=== PATIENT | female | born 1985 | race Caucasian/White ===

== ENCOUNTER 2017-01-12 10:46 | Emergency (ER) | payer MEDICAID ==
--- NOTE | 2017-01-12 10:54 | Emergency Department Report ---
Chief Complaint: Abdominal Pain Stated Complaint: ABDOMINAL PAIN/VOMITING Time Seen by Provider: 01/12/17 10:51 - HPI History of Present Illness: pt reports 3 days of N/V and abd pain PT denies being around others with similar symptoms. - ROS Review of Systems: + chills + n/v - diarrhea + hematuria - dysuria - Exam Physical Exam: pt looks well, non toxic abd soft, + tenderness MSE screening note: Focused history and physical exam performed. Due to findings the following was ordered: labs ED Disposition for MSE Condition: Stable
[2017-01-12 11:13] LABS: Basophils % (Auto) 0.3 % (0.0-1.8); Eosinophils % (Auto) 1.4 % (0.0-4.3); Hematocrit 41.5 % (30.3-42.9); Hemoglobin 14.2 gm/dl (10.1-14.3); Mean Corpuscular HGB Conc 34 % (30-34); Mean Corpuscular Hemoglobin 29 pg (28-32); Mean Corpuscular Volume 85 fl (79-97); Platelet Count 231 K/mm3 (140-440); Red Cell Distribution Width 13.1 % (13.2-15.2); White Blood Count 7.8 K/mm3 (4.5-11.0)
[2017-01-12 11:41] LABS: Alanine Aminotransferase 11 units/L (7-56); Albumin 4.4 g/dL (3.9-5); Albumin/Globulin Ratio 1.2 %; Alkaline Phosphatase 42 units/L (35-129); Anion Gap 30 mmol/L; BUN/Creatinine Ratio 15.71; Blood Urea Nitrogen 11 mg/dL (7-17); Calcium 9.4 mg/dL (8.4-10.2); Carbon Dioxide 10 mmol/L (22-30); Chloride 103.8 mmol/L (98-107); Glucose 90 mg/dL (65-100); Lipase 26 units/L (13-60); Potassium 4.1 mmol/L (3.6-5.0); Sodium 140 mmol/L (137-145); Total Protein 8.1 g/dL (6.3-8.2)
[2017-01-12 14:54] LABS: Bacteria,Urine 1+ /HPF (Negative); Bilirubin,Urine NEG (Negative); Blood,Urine NEG (Negative); Ketones,Urine 80 mg/dL (Negative); Leukocyte Esterase,Urine NEG (Negative); Mucus,Urine 3+ /HPF; Nitrite,Urine NEG (Negative); Urobilinogen,Urine < 2.0 mg/dL (<2.0)
[2017-01-12] MEDS ORDERED: PEPCID IV ONE (17:29)
[2017-01-12] MEDS ORDERED: CARAFATE PO ONE (17:29)
[2017-01-12] MEDS ORDERED: ALUM-MAG HYDROX-SIMETH 200-200-20MG/5ML PO ONE (17:29)
[2017-01-12] MEDS ORDERED: BENTYL IM ONE (17:29)
[2017-01-12] MEDS ORDERED: TORADOL IV ONE (17:29)
[2017-01-12] MEDS ORDERED: NACL 0.9% 1000 ML 2,000 ML IV ONE (17:30)
[2017-01-12] MEDS ORDERED: TYLENOL PO ONE (17:30)
--- NOTE | 2017-01-12 17:30 | Emergency Department Report ---
ED Abdominal Pain HPI - General Chief Complaint: Abdominal Pain Stated Complaint: ABDOMINAL PAIN/VOMITING Time Seen by Provider: 01/12/17 10:51 Source: patient, RN notes reviewed Mode of arrival: Ambulatory Limitations: No Limitations - History of Present Illness Initial Comments: This is a 31-year-old female. She is previously known to me. She is from [place]. She denies recent surgical history. Past medical history includes asthma. The patient presents to the ER with diffuse abdominal pain. It started 2-3 days ago. It's associated with nonbloody, nonbilious emesis. There is no hematemesis of bright red blood per rectum. The patient denies irritative and obstructive urinary symptoms. Her symptoms do not improve when she takes a hot shower. She denies recent marijuana ingestion. She does not have male sexual partners. She reports that she is not . MD Complaint: abdominal pain -: Gradual, days(s) Location: diffuse Severity: moderate Severity scale (0 -10): 8 Quality: cramping, aching Consistency: constant Improves With: rest Worsens With: eating, movement Associated Symptoms: nausea, vomiting - Related Data Home Medications Medication Instructions Recorded Confirmed Last Taken Butalb/Acetamin/Caff 50-325-40 1 tab PO DAILY PRN 01/12/17 01/12/17 Unknown [Fioricet] Topiramate [Topamax] 100 mg PO BID 01/12/17 01/12/17 Unknown Previous Rx's Medication Instructions Recorded Last Taken Type Dicyclomine [Bentyl] 10 mg PO QID PRN #20 capsule 01/12/17 Unknown Rx Famotidine [Pepcid] 20 mg PO QDAY PRN #30 tablet 01/12/17 Unknown Rx Ibuprofen [Motrin] 600 mg PO Q8H PRN #30 tablet 01/12/17 Unknown Rx Ondansetron [Zofran Odt] 4 mg PO QID PRN #20 tab.rapdis 01/12/17 Unknown Rx Allergies Allergy/AdvReac Type Severity Reaction Status Date / Time No Known Allergies Allergy Unverified 01/12/17 10:57 ED Review of Systems ROS: Stated complaint: ABDOMINAL PAIN/VOMITING Other details as noted in HPI Constitutional: malaise. denies: fever Eyes: denies: vision change ENT: denies: epistaxis Respiratory: denies: cough Cardiovascular: denies: chest pain Gastrointestinal: abdominal pain, nausea, vomiting Genitourinary: denies: urgency, dysuria Musculoskeletal: denies: back pain Skin: denies: lesions Neurological: weakness. denies: headache Psychiatric: denies: anxiety ED Past Medical Hx - Past Medical History Previous Medical History?: Yes Hx Headaches / Migraines: Yes Hx Asthma: Yes - Surgical History Past Surgical History?: No - Social History Smoking Status: Never Smoker Substance Use Type: None - Medications Home Medications: Home Medications Medication Instructions Recorded Confirmed Last Taken Type Butalb/Acetamin/Caff 50-325-40 1 tab PO DAILY PRN 01/12/17 01/12/17 Unknown History [Fioricet] Dicyclomine [Bentyl] 10 mg PO QID PRN #20 capsule 01/12/17 Unknown Rx Famotidine [Pepcid] 20 mg PO QDAY PRN #30 tablet 01/12/17 Unknown Rx Ibuprofen [Motrin] 600 mg PO Q8H PRN #30 tablet 01/12/17 Unknown Rx Ondansetron [Zofran Odt] 4 mg PO QID PRN #20 tab.rapdis 01/12/17 Unknown Rx Topiramate [Topamax] 100 mg PO BID 01/12/17 01/12/17 Unknown History ED Physical Exam - General Limitations: No Limitations General appearance: alert, in no apparent distress - Head Head exam: Present: atraumatic, normocephalic - Eye Eye exam: Present: normal appearance, EOMI, nystagmus - ENT ENT exam: Present: normal exam, normal orophraynx, mucous membranes dry - Neck Neck exam: Present: normal inspection, full ROM - Respiratory Respiratory exam: Present: normal lung sounds bilaterally. Absent: respiratory distress, wheezes, rales, rhonchi, stridor, chest wall tenderness, accessory muscle use, decreased breath sounds - Cardiovascular Cardiovascular Exam: Present: normal rhythm, tachycardia, normal heart sounds. Absent: systolic murmur, diastolic murmur, rubs, gallop - GI/Abdominal GI/Abdominal exam: Present: soft, tenderness, normal bowel sounds, other (there is mild lower abdominal tenderness to deep palpation. There is no rebound, guarding or peritoneal signs). Absent: distended, guarding, rebound, rigid, pulsatile mass - External exam: Present: normal external exam Speculum exam: Present: normal speculum exam. Absent: cervical discharge, vaginal bleeding Bi-manual exam: Present: normal bi-manual exam, other (during gynecologic examination, I am escorted by nurse Dilma Milian). Absent: cervical motion tendernes, adnexal tenderness - Extremities Exam Extremities exam: Present: normal inspection, full ROM, normal capillary refill. Absent: tenderness, pedal edema, joint swelling, calf tenderness - Back Exam Back exam: Present: normal inspection, full ROM. Absent: tenderness, CVA tenderness (R), CVA tenderness (L), muscle spasm, paraspinal tenderness, vertebral tenderness - Neurological Exam Neurological exam: Present: alert, oriented X3, normal gait, other (Extraocular movements intact. Tongue midline. No facial droop. Facial sensation intact to light touch in the V1, V2, V3 distribution bilaterally. 5 and 5 strength in 4 extremities.. Sensation is intact to light touch in 4 extremities.). Absent : motor sensory deficit - Psychiatric Psychiatric exam: Present: normal affect, normal mood - Skin Skin exam: Present: warm, dry, intact, normal color. Absent: rash ED Course Vital Signs 01/12/17 01/12/17 01/12/17 10:50 14:29 14:42 Temperature 99 F 98.2 F Pulse Rate 120 H 126 H Respiratory 16 18 18 Rate Blood Pressure 119/83 Blood Pressure 146/88 [Right] O2 Sat by Pulse 120 H 100 100 Oximetry 01/12/17 01/12/17 01/12/17 18:30 18:49 19:00 Temperature 98 F Pulse Rate 70 Respiratory 18 18 18 Rate Blood Pressure Blood Pressure 140/67 [Right] O2 Sat by Pulse 100 Oximetry - Reevaluation(s) Reevaluation #1: 01/12/17 18:49 Differential diagnosis: Viral syndrome, appendicitis, colitis, diverticulitis, pelvic inflammatory disease Assessment and plan: 31-year-old female with lower abdominal pain, nausea, vomiting, no diarrhea, low-grade temperature. Gynecologic exam is benign and she is not sexually active with men. Therefore, I think pelvic inflammatory disease is unlikely. She is treated symptomatically. A CT scan of the abdomen and pelvis is pending. She will be given pain medication, nausea medication and IV fluids. Laboratory studies indicate metabolic acidosis, decreased CO2, consistent with nausea and vomiting. Urinalysis also demonstrates ketones, also suggestive of nausea, vomiting, and poor oral intake. 01/12/17 18:50 01/12/17 19:37 Reevaluation #2: 01/12/17 19:30 CT scan negative. Belly soft on repeat examination. Patient feels improved. She is tolerating liquid feeds. Tachycardia has resolved. Patient will be discharged with pain medication, nausea medication, instructions to follow up. Given that her symptoms are improved, her tachycardia has improved, she is tolerating liquid feeds, her anion gap acidosis will likely resolve on its own, and I do not believe she requires additional laboratory studies at this time. 01/12/17 19:37 ED Medical Decision Making - Lab Data Result diagrams: 01/12/17 10:58 01/12/17 10:58 - Radiology Data Radiology results: report reviewed interpreted by me: CT scan of the abdomen and pelvis with IV contrast is negative for acute disease Critical care attestation.: If time is entered above; I have spent that time in minutes in the direct care of this critically ill patient, excluding procedure time. ED Disposition Clinical Impression: Abdominal pain Disposition: DC-01 TO HOME OR SELFCARE Is pt being admited?: No Does the pt Need Aspirin: No Condition: Stable Instructions: Abdominal Pain (ED) Additional Instructions: Take the pain medication, nausea medication as directed. Follow up with a primary care doctor or bobbin drier within the next 5-7 days. Return to the ER right away with new pain, worsening pain, migration of pain, fevers, chills, confusion, intractable nausea or vomiting, inability to tolerate liquid feeds. Cultures were sent today, was also be available in the next 3-5 days. Have a primary care doctor contact medical records department to obtain culture results. Prescriptions: Dicyclomine [Bentyl] 10 mg PO QID PRN #20 capsule PRN Reason: Pain Famotidine [Pepcid] 20 mg PO QDAY PRN #30 tablet PRN Reason: Pain Ibuprofen [Motrin] 600 mg PO Q8H PRN #30 tablet PRN Reason: Pain Ondansetron [Zofran Odt] 4 mg PO QID PRN #20 tab.rapdis PRN Reason: Nausea Referrals: PRIMARY CARE, [Primary Care Provider] - 3-5 Days SRINIVAS MERIDA MD [Staff Physician] - 3-5 Days JASMINA PARKS MD [Staff Physician] - 3-5 Days [facility] [Provider Group] - 3-5 Days [facility] [Provider Group] - 3-5 Days Forms: AMA Form
[2017-01-12] MEDS ORDERED: NACL ONE (17:57)
[2017-01-12 18:50] VITALS: BP 140/67
--- NOTE | 2017-01-12 19:19 | Cat Scan Report ---
FINAL REPORT EXAM: CT ABDOMEN PELVIS W CON HISTORY: abd pain n/v TECHNIQUE: CT images are acquired through the Abdomen and Pelvis following intravenous administration of contrast. Transaxial, coronal and sagittal reformations are provided. PRIORS: None FINDINGS: Partially visualized intrathoracic contents are unremarkable. The liver, gallbladder, pancreas, spleen, and adrenal glands are unremarkable. Kidneys show no worrisome lesions, hydronephrosis, or calculi. Urinary bladder is without intraluminal stone. Small and large bowel are normal in caliber. Appendix is normal. No free air, abdominal ascites, or lymphadenopathy identified. Aorta is normal in course and caliber. Anteverted uterus. Lower uterine segment heterogeneous fibroid. Right adnexal functional cyst. Trace pelvic fluid. Superficial soft tissues are unremarkable. No acute or aggressive appearing skeletal findings. IMPRESSION: No acute intra-abdominal process. If there is concern for gynecologic etiology of patient's symptoms, consider pelvic ultrasound. Lower uterine segment suggested fibroid.
== END 2017-01-12 19:53 | disposition home or self-care (01) ==
LOC: ED 10:46
DX: R10.84 Generalized abdominal pain (principal); G43.909 Migraine, unspecified, not intractable, without status migrainosus; J45.909 Unspecified asthma, uncomplicated
CPT/HCPCS: 36415; 74177; 80053; 81001; 83690; 84703; 85025; 87210; 87591; 96361; 96372; 96374; 96375; 99285; J0500; J1885; J7030; Q9967; 99284